=== PATIENT | male | born 1960 ===

== ENCOUNTER → 2018-09-02 19:48 | Outpatient (REF) | payer OTHER, SELFPAY ==
[2018-09-02 21:37] LABS: Hepatitis B Surface Antigen NEGATIVE s/c (NEGATIVE)
[2018-09-02 21:58] LABS: Hemoglobin A1C% w Est Avg Glu 6.6 % (4.0-6.0)
[2018-09-03 11:57] LABS: Hep C Virus Ab w/Reflex Quant NEGATIVE s/c (NEGATIVE)
== END ==
LOC: LAB 19:48
PROVIDERS: Visit Provider Family Medicine
DX: K76.89 Other specified diseases of liver (principal); E88.81 Metabolic syndrome and other insulin resistance; E11.9 Type 2 diabetes mellitus without complications
CPT/HCPCS: 36415; 82728; 83036; 86803; 87340